=== PATIENT | male | born 1985 | race Caucasian/White ===

== ENCOUNTER 2019-05-27 20:01 | Emergency (ER) | payer BC ==
[2019-05-27 20:32] VITALS: PULSE 113
--- NOTE | 2019-05-27 20:35 | EDM.PDOC ---
ED HPI GENERAL MEDICAL PROBLEM - General Chief Complaint: Skin Complaint Stated Complaint: RASHES ALL OVER BODY Time Seen by Provider: 05/27/19 20:29 - History of Present Illness INITIAL COMMENTS - FREE TEXT/NARRATIVE: HISTORY AND PHYSICAL: History of present illness: Patient 33-year-old male with no significant past medical history presents with concern of multiple areas of excoriation has extremities that have developed some mild redness and is concerned about possible infection patient actually initially stated he thought this might be ringworm. He denies drug abuse he denies history of MRSA Review of systems: As per history of present illness and below otherwise all systems reviewed and negative. Past medical history: As per history of present illness and as reviewed below otherwise noncontributory. Surgical history: As per history of present illness and as reviewed below otherwise noncontributory. Social history: No reported history of drug or alcohol abuse. Family history: As per history of present illness and as reviewed below otherwise noncontributory. Physical exam: HEENT: Atraumatic, normocephalic, pupils reactive, negative for conjunctival pallor or scleral icterus, mucous membranes moist, throat clear, neck supple, nontender, trachea midline. Lungs: Clear to auscultation, breath sounds equal bilaterally, chest nontender. Heart: S1S2, regular, negative for clicks, rubs, or JVD. Abdomen: Soft, nondistended, nontender. Negative for masses or hepatosplenomegaly. Negative for costovertebral tenderness. Pelvis: Stable nontender. Genitourinary: Deferred. Rectal: Deferred. Extremities: Atraumatic, negative for cords or calf pain. Neurovascular unremarkable. Neuro: Awake, alert, oriented. Cranial nerves II through XII unremarkable. Cerebellum unremarkable. Motor and sensory unremarkable throughout. Exam nonfocal. Skin: Patient has multiple areas approximately 1-3 cm in diameter of his extremities with mild erythema. Diagnostics: None Therapeutics: None Impression: #1 cellulitis Definitive disposition and diagnosis as appropriate pending reevaluation and review of above. R knee Pain Score (Numeric/FACES): 7 - Related Data Allergies Allergy/AdvReac Type Severity Reaction Status Date / Time No Known Allergies Allergy Verified 05/27/19 20:32 Home Meds: Home Meds . [No Known Home Meds] 02/06/14 [History] Past Medical History Other Gastrointestinal History: Peptic Ulcers ED ROS GENERAL - Review of Systems Review Of Systems: ROS reveals no pertinent complaints other than HPI. ED EXAM, SKIN/RASH Exam: See Below (See dictation) Course - Vital Signs Last Recorded V/S: Last Vital Signs Temp 36.8 C 05/27/19 20:30 Pulse 113 H 05/27/19 20:30 Resp 16 05/27/19 20:30 BP 121/82 05/27/19 20:30 Pulse Ox 99 05/27/19 20:30 Departure - Departure Time of Disposition: 20:34 Disposition: Home, Self-Care 01 Condition: Good Clinical Impression: Cellulitis - Discharge Information Referrals: PCP,None [Primary Care Provider] - Additional Instructions: The following information is given to patients seen in the emergency department who are being discharged to home. This information is to outline your options for follow-up care. We provide all patients seen in our emergency department with a follow-up referral. The need for follow-up, as well as the timing and circumstances, are variable depending upon the specifics of your emergency department visit. If you don't have a primary care physician on staff, we will provide you with a referral. We always advise you to contact your personal physician following an emergency department visit to inform them of the circumstance of the visit and for follow-up with them and/or the need for any referrals to a consulting specialist. The emergency department will also refer you to a specialist when appropriate. This referral assures that you have the opportunity for followup care with a specialist. All of these measure are taken in an effort to provide you with optimal care, which includes your followup. Under all circumstances we always encourage you to contact your private physician who remains a resource for coordinating your care. When calling for followup care, please make the office aware that this follow-up is from your recent emergency room visit. If for any reason you are refused follow-up, please contact the [facility] emergency department at and asked to speak to the emergency department charge nurse. [facility] [address] [place] [id number] Bactrim as prescribed follow-up primary care both called to schedule appointment return as needed as discussed
[2019-05-27 20:55] VITALS: BP 132/62
== END 2019-05-27 20:55 | disposition home or self-care (01) ==
LOC: MW.ED 20:01
DX: L03.116 Cellulitis of left lower limb (principal); L03.115 Cellulitis of right lower limb
CPT/HCPCS: 99282; 99283

== ENCOUNTER 2020-05-09 15:46 | Emergency (ER) | payer SELFPAY ==
[2020-05-09 16:01] VITALS: BP 125/74; PULSE 96
[2020-05-09] MEDS ORDERED: Azithromycin 250 MG Tab PO STA (16:28)
[2020-05-09] MEDS ORDERED: cefTRIAXone 250 MG in Lidocaine 1% 1 ML IM ONE (16:28)
--- NOTE | 2020-05-09 16:32 | EDM.PDOC ---
ED HPI GENERAL MEDICAL PROBLEM - General Chief Complaint: Genitourinary Problem Stated Complaint: STI Time Seen by Provider: 05/09/20 15:48 Source of Information: Reports: Patient History Limitations: Reports: No Limitations - History of Present Illness INITIAL COMMENTS - FREE TEXT/NARRATIVE: HISTORY AND PHYSICAL: History of present illness: Patient is a 34-year-old male who presents to the ED today with concern of possible STD infection. Patient states that approximately 1 week ago he did have an unprotected sexual encounter with a partner who may have had gonorrhea or chlamydia. Patient states he noticed 1 to 2 days ago he started having some penile discharge but denies any pain or abdominal pain. Patient denies any associated symptoms or any other symptoms or concerns. Patient denies fever, chills, chest pain, shortness of breath, or cough. Denies headache, neck stiff ness, change in vision, syncope, or near syncope. Denies nausea, vomiting, abdominal pain, diarrhea, constipation, or dysuria. Has not noted any blood in urine or stool. Patient has been eating and drinking appropriately. Review of systems: As per history of present illness and below otherwise all systems reviewed and negative. Past medical history: As per history of present illness and as reviewed below otherwise noncontributory. Surgical history: As per history of present illness and as reviewed below otherwise noncontributory. Social history: See social history for further information Family history: As per history of present illness and as reviewed below otherwise nonco ntributory. Physical exam: General: Patient is alert, oriented, and in no acute distress. Patient sitting comfortably on exam table. HEENT: Atraumatic, normocephalic, pupils equal and reactive bilaterally, negative for conjunctival pallor or scleral icterus, mucous membranes moist, TMs normal bilaterally, throat clear, neck supple, nontender, trachea midline. No drooling or trismus noted. No meningeal signs. No hot potato voice noted. Lungs: Clear to auscultation, breath sounds equal bilaterally, chest nontender. Heart: S1S2, regular rate and rhythm without overt murmur Abdomen: Soft, nondistended, nontender. Negative for masses or hepatosplenomegaly. Negative for costovertebral tenderness. Pelvis: Stable nontender. Genitourinary: Deferred. Rectal: Deferred. Skin: Intact, warm, dry. No lesions or rashes noted. Extremities: Atraumatic, negative for cords or calf pain. Neurovascular unremarkable. Neuro: Awake, alert, oriented. Cranial nerves II through XII unremarkable. Cerebellum unremarkable. Motor and sensory unremarkable throughout. Exam nonfocal. Notes: Sudden symptoms that would prompt return to the ED thoroughly discussed with patient. Discussed importance for follow-up with a primary care provider. Discussed with patient that if he desires full STD screening he can get this done with his primary care provider or at the [facility]. Voices understanding and is agreeable to plan of care. Denies any further questions or concerns at this time. Diagnostics: UA, Gonorrhea and chlamydia Therapeutics: Rocephin 250mg IM, Azithromycin 1g PO Prescription: Ciprofloxacin Impression: Urinary tract infection High risk sexual encounter Plan: 1. If you desire full STD screening, you can get this done with your primary care provider or at the [facility]. The number has been provided above for you to call and establish an appointment time. 2. Follow up with a primary care provider as discussed. Return to the ED as nee ded and as discussed. 3. Refrain from sexual intercourse until the lab work has returned. If you are positive for gonorrhea or chlamydia, refrain from sexual intercourse until you have had a test of cure. Definitive disposition and diagnosis as appropriate pending reevaluation and review of above. Penis Pain Score (Numeric/FACES): 5 - Related Data Allergies Allergy/AdvReac Type Severity Reaction Status Date / Time No Known Allergies Allergy Verified 05/09/20 15:57 Home Meds: Home Meds Ciprofloxacin [Ciprofloxacin HCl] 500 mg PO BID 5 Days #10 tab 05/09/20 [Rx] Past Medical History - Past Health History Medical/Surgical History: Denies Medical/Surgical History Other Gastrointestinal History: Peptic Ulcers - Infectious Disease History Infectious Disease History: Reports: None Social & Family History - Family History Family Medical History: Noncontributory - Tobacco Use Smoking Status *Q: Current Every Day Smoker Years of Tobacco use: 13 Packs/Tins Daily: 1 - Caffeine Use Caffeine Use: Reports: Coffee, Energy Drinks, Soda, Tea - Recreational Drug Use Recreational Drug Use: No ED ROS GENERAL - Review of Systems Review Of Systems: Comprehensive ROS is negative, except as noted in HPI. ED EXAM, GENERAL - Physical Exam Exam: See Below (see dictation) Course - Vital Signs Last Recorded V/S: Last Vital Signs Temp 96.0 F L 05/09/20 15:58 Pulse 96 05/09/20 15:58 Resp 18 05/09/20 15:58 BP 125/74 05/09/20 15:58 Pulse Ox 98 05/09/20 15:58 - Orders/Labs/Meds Orders: Active Orders 24 hr Category Date Time Status CHLAMYDIA AND GONORRHEA BY TMA Stat Lab 05/09/20 15:56 Received CULTURE URINE [RM] Stat Lab 05/09/20 15:56 Received Labs: Laboratory Tests 05/09/20 Range/Units 15:56 Urine Color YELLOW Urine Appearance SLT CLOUDY Urine pH 6.0 (5.0-8.0) Ur Specific [place] 1.025 (1.001-1.035) Urine Protein NEGATIVE (NEGATIVE) mg/dL Urine Glucose (UA) NEGATIVE (NEGATIVE) mg/dL Urine Ketones NEGATIVE (NEGATIVE) mg/dL Urine Occult Blood TRACE-INTACT H (NEGATIVE) Urine Nitrite NEGATIVE (NEGATIVE) Urine Bilirubin NEGATIVE (NEGATIVE) Urine Urobilinogen 0.2 (<2.0) EU/dL Ur Leukocyte Esterase MODERATE H (NEGATIVE) Urine RBC 1-3 (0-2/HPF) Urine WBC 20-30 (0-5/HPF) Ur Epithelial Cells RARE (NONE-FEW) Urine Bacteria FEW (NEGATIVE) Meds: Medications Discontinued Medications Generic Name Dose Route Start Last Admin Trade Name Buddyq PRN Reason Stop Dose Admin Azithromycin 1,000 mg 05/09/20 16:28 Zithromax PO 05/09/20 16:29 NOW STA Ceftriaxone Sodium 250 mg/ 1 mls @ 1 mls/sec 05/09/20 16:28 Lidocaine HCl IM 05/09/20 16:29 ONETIME ONE Departure - Departure Time of Disposition: 16:37 Disposition: Home, Self-Care 01 Clinical Impression: Urinary tract infection Qualifiers: Urinary tract infection type: acute cystitis Hematuria presence: without hematuria Qualified Code(s): N30.00 - Acute cystitis without hematuria High risk sexual behavior Qualifiers: High risk sexual behavior type: unspecified Qualified Code(s): Z72.51 - High risk heterosexual behavior - Discharge Information Prescriptions: Ciprofloxacin [Ciprofloxacin HCl] 500 mg PO BID 5 Days #10 tab Referrals: PCP,None [Primary Care Provider] - Forms: ED Department Discharge Additional Instructions: The following information is given to patients seen in the emergency department who are being discharged to home. This information is to outline your options for follow-up care. We provide all patients seen in our emergency department with a follow-up referral. The need for follow-up, as well as the timing and circumstances, are variable depending upon the specifics of your emergency department visit. If you don't have a primary care physician on staff, we will provide you with a referral. We always advise you to contact your personal physician following an emergency department visit to inform them of the circumstance of the visit and for follow-up with them and/or the need for any referrals to a consulting specialist. The emergency department will also refer you to a specialist when appropriate. This referral assures that you have the opportunity for follow-up care with a specialist. All of these measure are taken in an effort to provide you with optimal care, which includes your follow-up. Under all circumstances we always encourage you to contact your private physician who remains a resource for coordinating your care. When calling for follow-up care, please make the office aware that this follow-up is from your recent emergency room visit. If for any reason you are refused follow-up, please contact the [facility] Emergency Department at and asked to speak to the emergency department charge nurse. [facility] Primary Care [address] [place] [address] [id number] [address] [address] [facility] [address] [place] [address] 1. If you desire full STD screening, you can get this done with your primary care provider or at the [facility]. The number has been provided above for you to call and establish an appointment time. 2. Follow up with a primary care provider as discussed. Return to the ED as needed and as discussed. 3. Refrain from sexual intercourse until the lab work has returned. If you are positive for gonorrhea or chlamydia, refrain from sexual intercourse until you have had a test of cure. Take medication as prescribed. Sepsis Event Note (ED) - Evaluation Sepsis Screening Result: No Definite Risk - Focused Exam Vital Signs: Vital Signs Temp Pulse Resp BP Pulse Ox 05/09/20 15:58 96.0 F L 96 18 125/74 98 - My Orders Last 24 Hours: My Active Orders 05/09/20 15:56 CHLAMYDIA AND GONORRHEA BY TMA Stat CULTURE URINE [RM] Stat - Assessment/Plan Last 24 Hours: My Active Orders 05/09/20 15:56 CHLAMYDIA AND GONORRHEA BY TMA Stat CULTURE URINE [RM] Stat
[2020-05-12 11:07] LABS: C.TRACHOMATIS BY TMA Negative (Negative); N.GONORRHOEAE BY TMA Positive (Negative)
== END 2020-05-09 16:45 | disposition home or self-care (01) ==
LOC: MW.ED 15:46
DX: N30.00 Acute cystitis without hematuria (principal); Z72.51 High risk heterosexual behavior; F17.210 Nicotine dependence, cigarettes, uncomplicated
CPT/HCPCS: 81001; 87086; 87491; 87591; 96372; 99283; A9270; J0696; J2001; 99282

== ENCOUNTER 2020-07-04 14:32 | Emergency (ER) | payer MEDICAID ==
--- NOTE | 2020-07-04 14:43 | EDM.PDOC ---
ED HPI GENERAL MEDICAL PROBLEM - General Chief Complaint: Lower Extremity Injury/Pain Stated Complaint: right ankle swollen Time Seen by Provider: 07/04/20 14:32 Source of Information: Reports: Patient History Limitations: Reports: No Limitations - History of Present Illness INITIAL COMMENTS - FREE TEXT/NARRATIVE: HISTORY AND PHYSICAL: History of present illness: Is a 34-year-old male who presents to the ED today with concern of right ankle injury that occurred last night when he was playing Frisbee. Patient states he was running after the Frisbee when he stepped on the ground that was a little bit uneven. Patient states he twisted his right ankle and felt a popping sensation. Patient states that he has been able to put weight on it since but does have pain with doing so. Patient states he iced and elevated his legs throughout the night but continued to have pain on his ankle this morning. Patient denies completely falling or hitting his head or losing consciousness. Patient denies any other associated injuries or symptoms or concerns. Patient denies fever, chills, chest pain, shortness of breath, or cough. Denies headache, neck stiff ness, change in vision, syncope, or near syncope. Denies nausea, vomiting, abdominal pain, diarrhea, constipation, or dysuria. Has not noted any blood in urine or stool. Patient has been eating and drinking appropriately. Review of systems: As per history of present illness and below otherwise all systems reviewed and negative. Past medical history: As per history of present illness and as reviewed below otherwise noncontributory. Surgical history: As per history of present illness and as reviewed below otherwise noncontributory. Social history: See social history for further information Family history: As per history of present illness and as reviewed below otherwise noncontributory. Physical exam: General: Patient is alert, oriented, and in no acute distress. Patient sitting comfortably on exam table. Vital stable and reviewed by me. HEENT: Atraumatic, normocephalic, pupils equal and reactive bilaterally, negative for conjunctival pallor or scleral icterus, mucous membranes moist, TMs normal bilaterally, throat clear, neck supple, nontender, trachea midline. No drooling or trismus noted. No meningeal signs. No hot potato voice noted. Lungs: Clear to auscultation, breath sounds equal bilaterally, chest nontender. Heart: S1S2, regular rate and rhythm without overt murmur Abdomen: Soft, nondistended, nontender. Negative for masses or hepatosplenomegaly. Negative for costovertebral tenderness. Pelvis: Stable nontender. Genitourinary: Deferred. Rectal: Deferred. Skin: Intact, warm, dry. No lesions or rashes noted. Extremities: Patient does have mild to moderate edema of the lateral malleolus of the right ankle. Patient does have tenderness to palpation of this area. Patient does have limited range of motion of the right ankle due to pain but does have full range of motion of the right knee and digits on the right foot. Intact sensation to light and deep touch of the entire right lower extremity. Dorsalis pedis and posterior tibial pulses are grossly intact of the right lower extremity with capillary refill less than 2 seconds. Otherwise, atraumatic, negative for cords or calf pain. Neurovascular unremarkable. Neuro: Awake, alert, oriented. Cranial nerves II through XII unremarkable. Cerebellum unremarkable. Motor and sensory unremarkable throughout. Exam nonfocal. Notes: Signs and symptoms that would prompt return to the ED thoroughly discussed with patient. Discussed importance for follow-up with a primary care provider or orthopedic provider. Voices understanding and is agreeable to plan of care. Denies any further questions or concerns at this time. Diagnostics: None ankle x-ray, right Therapeutics: Walking boot and crutches. ankle injury r/o fracture, for joint stabilization. To be used until orthopedic evaluation Prescription: None Impression: Right ankle injury Plan: 1. Rest, ice, elevate the affected extremity. You can apply ice 15 minutes on, 15 minutes off. 2. Tylenol and/or Ibuprofen as directed for pain management or discomfort. 3. Follow up with the Orthopedic provider/primary care provider as discussed. Return to the ED as needed and as discussed. Definitive disposition and diagnosis as appropriate pending reevaluation and review of above. right ankle Pain Score (Numeric/FACES): 7 - Related Data Allergies Allergy/AdvReac Type Severity Reaction Status Date / Time No Known Allergies Allergy Verified 07/04/20 15:02 Home Meds: Home Meds . [No Known Home Meds] 07/04/20 [History] Past Medical History - Past Health History Medical/Surgical History: Denies Medical/Surgical History Other Gastrointestinal History: Peptic Ulcers - Infectious Disease History Infectious Disease History: Reports: None Social & Family History - Family History Family Medical History: No Pertinent Family History - Caffeine Use Caffeine Use: Reports: Coffee, Energy Drinks, Soda, Tea Review of Systems - Review of Systems Review Of Systems: Comprehensive ROS is negative, except as noted in HPI. ED EXAM, GENERAL - Physical Exam Exam: See Below (see dictation) Course - Vital Signs Last Recorded V/S: Last Vital Signs Temp 97.4 F 07/04/20 14:40 Pulse 96 07/04/20 14:40 Resp 16 07/04/20 14:40 BP 135/70 07/04/20 14:40 Pulse Ox 98 07/04/20 14:40 - Orders/Labs/Meds Orders: Active Orders 24 hr Category Date Time Status DME for Discharge [COMM] Stat Oth 07/04/20 15:35 Ordered Departure - Departure Time of Disposition: 15:36 Disposition: Home, Self-Care 01 Clinical Impression: Right ankle injury Qualifiers: Encounter type: initial encounter Qualified Code(s): S99.911A - Unspecified injury of right ankle, initial encounter - Discharge Information Referrals: PCP,None [Primary Care Provider] - Forms: ED Department Discharge Additional Instructions: The following information is given to patients seen in the emergency department who are being discharged to home. This information is to outline your options for follow-up care. We provide all patients seen in our emergency department with a follow-up referral. The need for follow-up, as well as the timing and circumstances, are variable depending upon the specifics of your emergency department visit. If you don't have a primary care physician on staff, we will provide you with a referral. We always advise you to contact your personal physician following an emergency department visit to inform them of the circumstance of the visit and for follow-up with them and/or the need for any referrals to a consulting specialist. The emergency department will also refer you to a specialist when appropriate. This referral assures that you have the opportunity for follow-up care with a specialist. All of these measure are taken in an effort to provide you with optimal care, which includes your follow-up. Under all circumstances we always encourage you to contact your private physician who remains a resource for coordinating your care. When calling for follow-up care, please make the office aware that this follow-up is from your recent emergency room visit. If for any reason you are refused follow-up, please contact the [facility] Emergency Department at and asked to speak to the emergency department charge nurse. [facility] Primary [facility] [address] [place] [address] [facility] [address] [place] [id number] [facility] Specialty [facility] - [facility] Professional Building [address] [facility], [address] [place] [address] Dr Narayan, Orthopedist [facility] [address] [place] [address] Dr Carson - Dr Workman - Dr Small [facility] at [facility] [address] [place] [address] [facility] [address] [place] [address] 1. Rest, ice, elevate the affected extremity. You can apply ice 15 minutes on, 15 minutes off. 2. Tylenol and/or Ibuprofen as directed for pain management or discomfort. 3. Follow up with the Orthopedic provider/primary care provider as discussed. Return to the ED as needed and as discussed. Sepsis Event Note (ED) - Focused Exam Vital Signs: Vital Signs Temp Pulse Resp BP Pulse Ox 07/04/20 14:40 97.4 F 96 16 135/70 98 - My Orders Last 24 Hours: My Active Orders 07/04/20 15:35 DME for Discharge [COMM] Stat - Assessment/Plan Last 24 Hours: My Active Orders 07/04/20 15:35 DME for Discharge [COMM] Stat
--- NOTE | 2020-07-04 15:13 | CR ---
INDICATION: Right foot and ankle pain TECHNIQUE: Ankle radiograph 3 views right COMPARISON: None FINDINGS: Bone: No acute fractures or aggressive bone lesions are identified. Joint: The ankle mortise joint and the visualized hindfoot joints are unremarkable in appearance. No significant ankle effusion is seen. Soft tissue: Mild lateral swelling seen. The Kager fat pad and the Achilles` tendon is normal in appearance. No radiopaque foreign bodies are seen. IMPRESSION: 1. No acute osseous injuries or abnormalities are noted. Dictated by: Pool Payne MD @ 07/04/2020 15:11:42 (Electronically Signed)
--- NOTE | 2020-07-04 15:15 | CR ---
INDICATION: Right foot and ankle pain TECHNIQUE: Foot radiograph 2 views right COMPARISON: None FINDINGS: Bone: No acute fractures or aggressive bone lesions are identified. Joint: The visualized hindfoot, midfoot, and forefoot joints are unremarkable in appearance. No significant ankle effusion is seen. Soft tissue: Unremarkable. No radiopaque foreign bodies are seen. IMPRESSION: 1. No acute osseous injuries or abnormalities are noted. Dictated by: Pool Payne MD @ 07/04/2020 15:13:15 (Electronically Signed)
[2020-07-04 17:26] VITALS: BP 127/77; PULSE 75
== END 2020-07-04 16:32 | disposition home or self-care (01) ==
LOC: MW.ED 14:32
DX: S99.911A Unspecified injury of right ankle, initial encounter (principal); X50.1XXA Overexertion from prolonged static or awkward postures, initial encounter; Y93.74 Activity, frisbee
CPT/HCPCS: 73610-26-RT; 73610-RT; 73620-26-RT; 73620-RT; 99283

== ENCOUNTER 2020-09-26 10:55 | Emergency (ER) | payer MEDICAID, OTHER ==
[2020-09-26] MEDS ORDERED: Sodium Chloride 0.9% 2.5 ML Syringe FLUSH PRN (11:39)
[2020-09-26] MEDS ORDERED: Sodium Chloride 0.9% 10 ML Syringe FLUSH PRN (11:39)
[2020-09-26] MEDS ORDERED: MVI, Adult with Vitamin K 10 ML, Thiamine 100 MG, Folic Acid 1 MG in Sodium Chloride 0.... IV ONE ×4 (11:40)
[2020-09-26] MEDS ORDERED: Ketorolac 30 MG/ML SDV IVPUSH ONE (11:58)
[2020-09-26] MEDS ORDERED: Sodium Chloride 0.9% 1,000 ML IV ONE (11:58)
--- NOTE | 2020-09-26 12:10 | PCM.EKG ---
#1 Interpretation EKG Date: 09/26/20 Time: 12:10 EKG Interpretation Comments: Normal sinus rhythm with a rate of 94 normal axis and intervals no acute ischemia normal EKG
[2020-09-26 12:28] LABS: BLOOD UREA NITROGEN,BUN 15 mg/dL (7.0-18.0); CARBON DIOXIDE,CO2 23.4 mmol/L (21.0-32.0); CHLORIDE,CL 103 mmol/L (98-107); GLUCOSE RANDOM 119 mg/dL (74-106); LIPASE 111 U/L (73-393); POTASSIUM,K 3.9 mmol/L (3.5-5.1); SODIUM,NA 138 mmol/L (136-148)
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
[2020-09-26] MEDS ORDERED: Iopamidol 755 MG/ML 500 ML Multipack Bottle IVPUSH ONE (12:54)
--- NOTE | 2020-09-26 13:22 | CR ---
HISTORY: Left rib pain. No known injury. TECHNIQUE: Frontal view the chest. COMPARISON: Chest x-ray 04/20/2014. FINDINGS: No airspace consolidation. No pleural effusion or pneumothorax. Pulmonary vasculature and cardiomediastinal silhouette are within normal limits. Healed remote left rib fracture. IMPRESSION: No acute findings. Healed remote left rib fracture. Dictated by Frederick Castillo MD @ Sep 26 2020 1:19PM Signed by Dr. Frederick Castillo @ Sep 26 2020 1:20PM
--- NOTE | 2020-09-26 13:28 | CT ---
HISTORY: Right upper quadrant pain. TECHNIQUE: CT abdomen pelvis with IV contrast. 100 mL Isovue-370 IV. COMPARISON: None. FINDINGS: Abdomen: No liver lesions. No bile duct dilation. No pancreatic mass or pancreatic duct dilation. No spleen lesions. No adrenal nodules. Kidneys enhance symmetrically. No renal mass. No hydronephrosis. No dilated bowel. Appendix is unremarkable. No free fluid. No lymphadenopathy. Abdominal aorta is normal caliber. Pelvis: No lymphadenopathy. Musculoskeletal: Unremarkable. Lower chest: Minimal atelectasis in the lung bases. IMPRESSION: No acute abnormality in the abdomen or pelvis. Please note that all CT scans at this facility use dose modulation, iterative reconstruction, and/or weight-based dosing when appropriate to reduce radiation dose to as low as reasonably achievable. Dictated by Frederick Castillo MD @ Sep 26 2020 1:19PM Signed by Dr. Frederick Castillo @ Sep 26 2020 1:26PM
[2020-09-26 13:48] VITALS: BP 129/79; PULSE 89
== END 2020-09-26 13:46 | disposition home or self-care (01) ==
LOC: MW.ED 10:55
DX: R10.12 Left upper quadrant pain (principal); R07.81 Pleurodynia; R74.01 Elevation of levels of liver transaminase levels; F10.10 Alcohol abuse, uncomplicated; Z72.0 Tobacco use
CPT/HCPCS: 36415; 71045; 74177; 80053; 81003; 83690; 84484; 85025; 93005; 96365; 96375; 99284; J1885; J3411; J7030; Q9967; 93010; 99283

== ENCOUNTER 2020-10-16 09:16 | Emergency (ER) | payer MEDICAID ==
[2020-10-16] MEDS ORDERED: Albuterol/Ipratropium 3.0-0.5 MG/3 ML Neb Soln NEB ONE (09:34)
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
[2020-10-16 10:39] LABS: BLOOD UREA NITROGEN,BUN 12 mg/dL (7.0-18.0); CARBON DIOXIDE,CO2 22.6 mmol/L (21.0-32.0); CHLORIDE,CL 103 mmol/L (98-107); GLUCOSE RANDOM 115 mg/dL (74-106); LIPASE 72 U/L (73-393); POTASSIUM,K 3.7 mmol/L (3.5-5.1); SODIUM,NA 139 mmol/L (136-148)
--- NOTE | 2020-10-16 11:06 | CR ---
Indication: Cough and vomiting Comparison: Single view chest September 26, 2020 Technique: PA and Lateral views chest Findings: There is no focal consolidation, effusion, or pneumothorax. The cardiomediastinal silhouette is within normal limits. Old bilateral rib deformities are appreciated. Impression: No acute cardiopulmonary abnormality. Dictated by Larry Orta MD @ Oct 16 2020 11:03AM Signed by Dr. Larry Orta @ Oct 16 2020 11:04AM
[2020-10-16 11:40] VITALS: BP 128/54; PULSE 103
== END 2020-10-16 11:40 | disposition home or self-care (01) ==
LOC: MW.ED 09:16
DX: R05 Cough (principal); R07.81 Pleurodynia; R00.0 Tachycardia, unspecified; Z72.0 Tobacco use
CPT/HCPCS: 36415; 71046; 71046-26; 80053; 82550; 83605; 83690; 83735; 84100; 85025; 93005; 93010; 94640; 99283; 99284-25; J7620-GY

== ENCOUNTER 2020-10-22 03:04 | Emergency (ER) | payer MEDICAID ==
[2020-10-22] MEDS ORDERED: Ondansetron 4 MG Tab.DIS PO ONE (03:29)
[2020-10-22] MEDS ORDERED: Ketorolac 30 MG/ML SDV IM ONE (03:29)
[2020-10-22] MEDS ORDERED: HYDROmorphone 1 MG/ML Syringe IM ONE (03:29)
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
--- NOTE | 2020-10-22 03:57 | CR ---
INDICATION: Cough with left rib pain TECHNIQUE: Chest radiograph 2 views COMPARISON: None FINDINGS: Moderate degradation of image quality noted due to body habitus. Mediastinum: The mediastinum is normal in appearance. The heart silhouette is normal in size and morphology. Lung: Both lungs are unremarkable in appearance. No sign of pleural effusion seen. No pneumothorax is identified. Bone and Soft tissue: Remote healed bilateral rib fractures are noted. No definite acute rib injuries seen but if this is a high clinical index of suspicion, dedicated rib radiographs are recommended. IMPRESSIONS: 1. No acute cardiopulmonary disease is seen. 2. No definite acute rib injuries seen but if this is a high clinical index of suspicion, dedicated rib radiographs are recommended. Dictated by Pool Payne MD @ 10/22/2020 3:56:08 AM Dictated by: Pool Payne MD @ 10/22/2020 03:56:11 (Electronically Signed)
[2020-10-22] MEDS ORDERED: guaiFENesin/Dextromethorphan 100-10 MG/5 ML Soln 10 ML Cup PO STA (04:03)
[2020-10-22 04:22] VITALS: BP 138/71; PULSE 94
== END 2020-10-22 04:22 | disposition home or self-care (01) ==
LOC: MW.ED 03:04
DX: R07.81 Pleurodynia (principal); R05 Cough
CPT/HCPCS: 71046; 96372; 99283; A9270; J1170; J1885

== ENCOUNTER 2020-10-25 16:14 | Emergency (ER) | payer MEDICAID ==
[2020-10-25] MEDS ORDERED: Acetaminophen/HYDROcodone 325-10 MG Tab PO ONE (16:51)
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
--- NOTE | 2020-10-25 17:42 | CR ---
INDICATION: Chronic cough. COMPARISON: : 22 October 2020 TECHNIQUE: Two view chest. FINDINGS: The lungs are clear. The heart, mediastinum and pulmonary vessels are of normal size. There is no evidence of pleural disease. Healed right lateral 6th and 7th rib fractures. Healed left 7th rib fracture. No acute rib findings. No pneumothorax or effusion. IMPRESSION: Negative chest. Dictated by Ji Lockwood MD @ Oct 25 2020 5:39PM Signed by Dr. Ji Lockwood @ Oct 25 2020 5:41PM
[2020-10-25] MEDS ORDERED: predniSONE 10 MG Tab PO STA (18:01)
[2020-10-25] MEDS ORDERED: HYDROmorphone 1 MG/ML Syringe IM ONE (18:01)
[2020-10-25 18:23] VITALS: BP 157/83; PULSE 95
== END 2020-10-25 19:21 | disposition home or self-care (01) ==
LOC: MW.ED 16:14
DX: M54.6 Pain in thoracic spine (principal); M54.5 Low back pain; R07.81 Pleurodynia; R05 Cough; R06.02 Shortness of breath; Z72.0 Tobacco use
CPT/HCPCS: 71046; 96372; 99283; A9270; J1170

== ENCOUNTER 2020-11-22 13:34 | Emergency (ER) | payer MEDICAID ==
[2020-11-22 13:51] VITALS: BP 135/88; PULSE 116
[2020-11-22] MEDS ORDERED: Acetaminophen/oxyCODONE 325-5 MG Tab PO ONE (14:10)
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
--- NOTE | 2020-11-22 14:57 | CR ---
Indication: Left-sided upper rib pain Technique: PA chest and oblique views of the left ribs Comparison: Chest x-ray 10/30/2020 Findings: Normal cardiac mediastinal silhouette basilar atelectasis. No effusion or pneumothorax. Bilateral old posterior rib fractures. Probable acute posterior left 7th rib fracture. As well as the 8th posterior rib. Dictated by Kim Guerin MD @ 11/22/2020 2:57:[address] Kim Guerin @ Nov 22 2020 2:57PM
== END 2020-11-22 15:57 | disposition home or self-care (01) ==
LOC: MW.ED 13:34
DX: S22.42XA Multiple fractures of ribs, left side, initial encounter for closed fracture (principal); X50.0XXA Overexertion from strenuous movement or load, initial encounter
CPT/HCPCS: 71101; 99283; A9270; 93010

== ENCOUNTER 2021-06-08 16:46 | Observation (INO) | payer MEDICAID ==
[2021-06-08] MEDS ORDERED: Tetracaine HCl/PF 0.5% 4 ML Bottle EYEBOTH ONE (17:24)
--- NOTE | 2021-06-08 18:46 | PCM.EKG ---
#1 Interpretation Time: 18:45 EKG Interpretation Comments: 105, sinus tachycardia, nonspecific ST/T findings.
[2021-06-08 18:51] LABS: BLOOD UREA NITROGEN,BUN 7 mg/dL (7.0-18.0); CARBON DIOXIDE,CO2 22.7 mmol/L (21.0-32.0); CHLORIDE,CL 103 mmol/L (98-107); GLUCOSE RANDOM 163 mg/dL (74-106); POTASSIUM,K 3.6 mmol/L (3.5-5.1); SODIUM,NA 140 mmol/L (136-148)
[2021-06-08] MEDS ORDERED: Iopamidol 755 MG/ML 500 ML Multipack Bottle IVPUSH STA (19:16)
--- NOTE | 2021-06-08 19:41 | CT ---
DATE: 06/08/2021 CLINICAL HISTORY: Patient with left-sided visual loss and vertigo. TECHNIQUE: Standard helical CT image acquisition through the intracranial circulation following intravenous administration of contrast material with bolus tracking. Multiplanar reconstructed images were performed and interpreted. COMPARISON: None. FINDINGS: There is no cerebral aneurysm or large vessel occlusion. The right internal carotid artery is normal. The right middle cerebral artery and its branches are normal. The right anterior cerebral artery and its branches are normal. The left internal carotid artery is normal. The left middle cerebral artery and its branches are normal. The left anterior cerebral artery and its branches are normal. The anterior communicating artery is well visualized and appears normal. The right vertebral artery and PICA are normal. The left vertebral artery and PICA are normal. The left vertebral artery is dominant. The basilar artery is patent and appears normal. The right posterior cerebral artery is normal. The left posterior cerebral artery is normal. The visualized venous structures are patent. IMPRESSION: Normal CT angiogram of the head without intracranial aneurysm or other neurovascular abnormality. Please note that all CT scans at this facility use dose modulation, iterative reconstruction, and/or weight-based dosing when appropriate to reduce radiation dose to as low as reasonably achievable. Dictated by Twyla Singleton MD @ 06/08/2021 11:36:18 PM (Electronically Signed)
--- NOTE | 2021-06-08 19:47 | CT ---
DATE: 06/08/2021 CLINICAL HISTORY: Patient with left-sided visual loss and vertigo. TECHNIQUE: Standard helical CT image acquisition of the neck up to the skull base after bolus intravenous contrast enhancement. Multiplanar reconstructed images performed on a separate workstation. COMPARISON: None. FINDINGS: The origins of the great vessels from the aortic arch are patent. The origin of the right vertebral artery is patent. The origin of the left vertebral artery is patent. The common carotid arteries are patent. There is no stenosis at the origin of the right internal carotid artery. There is no stenosis at the origin of the left internal carotid artery. The rest of the cervical segments of the internal carotid arteries are patent up to the skull base. The left vertebral artery is dominant. The cervical segments of the vertebral arteries are patent up to the skull base. The visualized intracranial vasculature is unremarkable. The visualized lung apices are unremarkable. The thyroid gland is unremarkable. The soft tissues of the neck are unremarkable. There are degenerative changes in the cervical spine. IMPRESSION: Normal CT angiogram of the neck. Please note that all CT scans at this facility use dose modulation, iterative reconstruction, and/or weight-based dosing when appropriate to reduce radiation dose to as low as reasonably achievable. Dictated by Twyla Singleton MD @ 06/08/2021 11:37:55 PM (Electronically Signed)
[2021-06-08] MEDS ORDERED: Sodium Chloride 0.9% 1,000 ML IV ONE (19:57)
[2021-06-08] MEDS ORDERED: Meclizine 25 MG Tab PO ONE (19:57)
[2021-06-08] MEDS ORDERED: Ondansetron 4 MG/2 ML SDV IVPUSH ONE (19:57)
[2021-06-08] MEDS ORDERED: LORazepam 2 MG/ML SDV IVPUSH ONE (21:33)
[2021-06-09] MEDS ORDERED: Acetaminophen 325 MG Tab PO PRN (02:14)
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
--- NOTE | 2021-06-09 07:29 | CT ---
Indication: Vertigo Technique: Volumetric multidetector CT images of the head were obtained without the administration of low osmolar intravenous contrast. Comparison: Angiography head June 08, 2021 Findings: There is no intra-axial or extra-axial fluid collection. There is no mass effect or midline shift. The ventricles and sulci are normal in size and position for age. The brain parenchyma is grossly preserved in attenuation and pompa-white differentiation. The orbits and their contents are grossly within normal limits. The bony calvarium is grossly intact. The paranasal sinuses are clear. The mastoid air cells are well aerated. Impression: No acute intracranial abnormality. Please note that all CT scans at this facility use dose modulation, iterative reconstruction, and/or weight-based dosing when appropriate to reduce radiation dose to as low as reasonably achievable. Dictated by Larry Orta MD @ 06/09/2021 7:28:33 AM (Electronically Signed)
[2021-06-09] MEDS ORDERED: Gadobenate Dimeglumine 529 MG/ML 20 ML SDV IVPUSH STA (07:37)
--- NOTE | 2021-06-09 08:47 | MR ---
Indication: Vertigo Technique: Multiplanar, multisequence MR images of the brain were obtained before and after the administration of intravenous gadolinium. 20 cc MultiHance Comparison: CT angiography June 08, 2021 Findings: On midline sagittal T1 images there are preserved flow voids and sagittal sinuses. The corpus callosum is preserved in signal and contour. The pituitary gland is unremarkable without evidence of remodeling of the sella turcica. There is no significant cerebellar tonsillar ectopia. On diffusion-weighted sequences, there is no evidence of acute or subacute infarct. On blood sensitive sequences, there is no evidence of or chronic hemorrhage. There is mild nonspecific periventricular T2/FLAIR hyperintensity which may represent sequela of chronic small vessel disease change and/or migraines. The remaining brain parenchyma is otherwise preserved in signal intensity. There is incidental note made of subtle T2/FLAIR hyperintense signal adjacent to the distal aspect of the right vertebral artery on series 501, image 1 through 3 There is no evidence of abnormal contrast enhancement. The flow voids of the skull base are otherwise grossly preserved. The orbits and their contents are within normal limits. There is minimal mucosal thickening in the paranasal sinuses. The mastoid air cells are clear. Impression: No evidence of restricted diffusion or obvious acute intracranial abnormality. There is questionable demonstration of eccentric T2/FLAIR hyperintense signal adjacent to the right V3 segment of the visualized distal right vertebral artery. This could represent mild venous prominence and normal-variant hypoplasia. If there is concern for subtle vertebral artery dissection, consider follow-up with MR angiography of the cervical vasculature with a fat-suppressed T1 sequence for evaluation T1 hyperintense intramural hemorrhage. Dictated by Larry Orta MD @ 06/09/2021 8:46:14 AM (Electronically Signed)
[2021-06-09] MEDS ORDERED: Gabapentin 300 MG Cap PO PRN (11:21)
[2021-06-09] MEDS ORDERED: Ondansetron 4 MG/2 ML SDV IVPUSH PRN (11:21)
[2021-06-09] MEDS: Pantoprazole 40 MG Tab.CR PO SCH (12:15)
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
--- NOTE | 2021-06-09 13:24 | MR ---
INDICATION: Possible vertebral artery dissection. TECHNIQUE: [id number] MRA images acquired through the head. COMPARISON: CTA head 06/08/2021. FINDINGS: The visualized internal carotid, middle cerebral, and anterior cerebral arteries are widely patent. The visualized vertebral, basilar, and posterior cerebral arteries are widely patent. No intracranial aneurysm. IMPRESSION: Unremarkable MRA of the head. Dictated by Alf Bingham MD @ 06/09/2021 1:22:22 PM (Electronically Signed)
--- NOTE | 2021-06-09 14:08 | MR ---
INDICATION: Possible vertebral artery dissection. TECHNIQUE: [id number] MRA images acquired through the neck. COMPARISON: CTA neck 06/08/2021. FINDINGS: The common carotid arteries are widely patent. The internal carotid arteries are widely patent. The left vertebral artery is dominant. The vertebral arteries are widely patent. No findings to suggest arterial dissection. IMPRESSION: 1. Wide patency of the cervical arteries. 2. No findings to suggest arterial dissection. Dictated by Alf Bingham MD @ 06/09/2021 2:07:04 PM (Electronically Signed)
[2021-06-10 06:48] LABS: CARBON DIOXIDE,CO2 30.1 mmol/L (21.0-32.0); POTASSIUM,K 4.4 mmol/L (3.5-5.1)
[2021-06-10] MEDS: Pantoprazole 40 MG Tab.CR PO SCH (09:40)
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
--- NOTE | 2021-06-10 11:07 | PCM.DCSUM1 ---
Discharge Summary - Hospital Course Free Text/Narrative:: The patient is a 35-year-old male, on day 2 of service, who has a significant past medical history of migraines, ADHD, bipolar disorder, back pain, and carpal tunnel syndrome, who was admitted to the medical floor due to vertigo and complaints of left eye visual loss. During his hospital course the patient had multiple imaging modalities done including a CTA of the head and neck which was within normal limits, brain MRI which depicted a possible vertebral dissection, and an MRA of the head and neck which was unremarkable. Multiple doctors were also consulted in regards to this patient including neurologist Dr. Johnson and neuroradiologist Dr. Orta. Due to the negative imaging modalities, both of these physicians felt the patient's symptoms were secondary to his history of migraines and possibly an acute viral infection, and that anticoagulation is not needed at this time. Upon interview with the patient today he feels his dizziness and vertigo has completely resolved, and he is symptom-free and feels well. For his ongoing visual symptoms which have plagued him since he was 10 years old, he will follow up with cement or concrete finishing supervisor Dr. Staley on an outpatient basis. The patient has been advised to return to the hospital if he experiences worsening headache, dizziness, nausea, vomiting, slurred speech, or weakness. He is also been counseled to be compliant with his medications and to take them at scheduled times. The patient has also been educated on following up with his PCP Dr. Noonan in 1 to 2 weeks time. The patient is now stable and can be discharged. - Discharge Data Discharge Date: 06/10/21 Discharge Disposition: Home, Self-Care 01 Condition: Stable - Referral to Home Health Primary Care Physician: PCP None - Discharge Diagnosis/Problem(s) (1) Vertigo SNOMED Code(s): 979527382 ICD Code: R42 - DIZZINESS AND GIDDINESS Status: Acute Current Visit: Yes (2) Migraine SNOMED Code(s): 12737828 ICD Code: G43.909 - MIGRAINE, UNSP, NOT INTRACTABLE, WITHOUT STATUS MIGRAINOSUS Status: Acute Current Visit: Yes (3) Vomiting SNOMED Code(s): 383454899 ICD Code: R11.10 - VOMITING, UNSPECIFIED Status: Acute Current Visit: Yes (4) Carpal tunnel syndrome SNOMED Code(s): 97993564 ICD Code: G56.00 - CARPAL TUNNEL SYNDROME, UNSPECIFIED UPPER LIMB Status: Acute Current Visit: Yes (5) Headache SNOMED Code(s): 49935493 ICD Code: R51.9 - HEADACHE, UNSPECIFIED Status: Acute Current Visit: Yes (6) Back pain SNOMED Code(s): 769927183 ICD Code: M54.9 - DORSALGIA, UNSPECIFIED Status: Acute Current Visit: No (7) Visual problems SNOMED Code(s): 59050431 ICD Code: H54.7 - UNSPECIFIED VISUAL LOSS Status: Acute Current Visit: Yes - Patient Summary/Data Consults: Consultations 06/09/21 09:36 Consult to Physician [CONS] Routine - Patient Instructions Diet: Regular Diet as Tolerated Activity: As Tolerated Showering/Bathing: May Shower Other/Special Instructions: -If you have worsening dizziness, headache, nausea, vomiting, slurred speech, or weakness, return to the hospital. -Be compliant with your medications and take them at scheduled times. -Follow-up with cement or concrete finishing supervisor Dr. Staley. -Follow-up with PCP Dr. Noonan - Discharge Plan Home Medications: Home Meds Gabapentin [Neurontin] 300 mg PO BID PRN 06/09/21 [History] Patient Handouts: Vertigo, [id number] Referrals: Ta Staley MD [Ordering Only Provider] - - Discharge Summary/Plan Comment DC Time >30 min.: Yes Total # of Minutes for Discharge Time: 35 minutes - Review of Systems General: Denies: Fever, Fatigue HEENT: Denies: Headaches Pulmonary: Denies: Shortness of Breath, Cough Cardiovascular: Denies: Chest Pain, Palpitations Gastrointestinal: Denies: Abdominal Pain Genitourinary: Denies: Dysuria Neurological: Denies: Dizziness, Numbness, Seizure - Patient Data Vitals - Most Recent: Last Vital Signs Temp 96.1 F L 06/10/21 08:00 Pulse 82 06/10/21 08:00 Resp 22 H 06/10/21 08:00 BP 140/91 H 06/10/21 08:00 Pulse Ox 92 L 06/10/21 08:00 Weight - Most Recent: 309 lb 9.6 oz I&O - Last 24 hours: Intake & Output 06/09/21 06/10/21 06/10/21 22:59 06:59 14:59 Intake Total 1700 1000 Output Total 1100 800 Balance 600 200 Lab Results - Last 24 hrs: Laboratory Results - last 24 hr 06/10/21 06/10/21 Range/Units 06:00 06:00 WBC 5.24 (4.0-11.0) K/uL RBC 3.89 L (4.50-5.90) M/uL Hgb 13.8 (13.0-17.0) g/dL Hct 39.2 (38.0-50.0) % MCV 100.8 H (80.0-98.0) fL MCH 35.5 H (27.0-32.0) pg MCHC 35.2 (31.0-37.0) g/dL RDW Std Deviation 50.8 (28.0-62.0) fl RDW Coeff of Sid 14 (11.0-15.0) % Plt Count 143 L (150-400) K/uL MPV 10.10 (7.40-12.00) fL Neut % (Auto) 57.6 (48.0-80.0) % Lymph % (Auto) 26.9 (16.0-40.0) % [place] % (Auto) 8.2 (0.0-15.0) % Eos % (Auto) 6.7 (0.0-7.0) % Baso % (Auto) 0.6 (0.0-1.5) % Neut # (Auto) 3.0 (1.4-5.7) K/uL Lymph # (Auto) 1.4 (0.6-2.4) K/uL [place] # (Auto) 0.4 (0.0-0.8) K/uL Eos # (Auto) 0.4 (0.0-0.7) K/uL Baso # (Auto) 0.0 (0.0-0.1) K/uL Nucleated RBC % 0.0 /100WBC Nucleated RBCs # 0 K/uL Sodium 139 (136-148) mmol/L Potassium 4.4 (3.5-5.1) mmol/L Chloride 102 (98-107) mmol/L Carbon Dioxide 30.1 (21.0-32.0) mmol/L BUN 10 (7.0-18.0) mg/dL Creatinine 1.4 H (0.8-1.3) mg/dL Est Cr Clr Drug Dosing 80.83 mL/min Estimated GFR (MDRD) 57.7 ml/min Glucose 120 H (74-106) mg/dL Calcium 8.8 (8.5-10.1) mg/dL Med Orders - Current: Current Medications Acetaminophen (Acetaminophen 325 Mg Tab) 325 mg PO Q6H PRN PRN Reason: Pain Gabapentin (Gabapentin 300 Mg Cap) 300 mg PO BID PRN PRN Reason: back pain Last Admin: 06/09/21 12:15 Dose: 300 mg Documented by: Ondansetron HCl (Ondansetron 4 Mg/2 Ml Sdv) 4 mg IVPUSH Q4H PRN PRN Reason: Vomiting Pantoprazole Sodium (Pantoprazole 40 Mg Tab.Cr) 40 mg PO DAILY ROBI Last Admin: 06/10/21 09:40 Dose: 40 mg Documented by: Discontinued Medications Gadobenate Dimeglumine (Gadobenate Dimeglumine 529 Mg/Ml 20 Ml Sdv) 20 ml IVPUSH ONETIME STA Stop: 06/09/21 07:38 Last Admin: 06/09/21 07:37 Dose: 20 ml Documented by: Sodium Chloride (Normal Saline) 1,000 mls @ 999 mls/hr IV STAT ONE Stop: 06/08/21 20:57 Last Admin: 06/08/21 20:04 Dose: 999 mls/hr Documented by: Iopamidol (Iopamidol 755 Mg/Ml 500 Ml Multipack Bottle) 100 ml IVPUSH ONETIME STA Stop: 06/08/21 19:17 Last Admin: 06/08/21 19:17 Dose: 100 ml Documented by: Lorazepam (Lorazepam 2 Mg/Ml Sdv) 1 mg IVPUSH ONETIME ONE Stop: 06/08/21 21:34 Last Admin: 06/08/21 21:43 Dose: 1 mg Documented by: Meclizine HCl (Meclizine 25 Mg Tab) 25 mg PO ONETIME ONE Stop: 06/08/21 19:58 Last Admin: 06/08/21 20:04 Dose: 25 mg Documented by: Ondansetron HCl (Ondansetron 4 Mg/2 Ml Sdv) 4 mg IVPUSH ONETIME ONE Stop: 06/08/21 19:58 Last Admin: 06/08/21 20:04 Dose: 4 mg Documented by: Tetracaine HCl (Tetracaine Hcl/Pf 0.5% 4 Ml Bottle) 2 ml EYEBOTH ASDIRECTED ONE Stop: 06/08/21 17:25 Last Admin: 06/08/21 18:05 Dose: 2 ml Documented by: - Exam General: Reports: Alert, Oriented, Cooperative HEENT: Reports: Pupils Equal, Pupils Reactive, EOMI, Mucous Membr. Moist/[place] Neck: Denies: Lymphadenopathy Lungs: Reports: Clear to Auscultation, Normal Respiratory Effort Cardiovascular: Reports: Regular Rate, Regular Rhythm GI/Abdominal Exam: Normal Bowel Sounds, Soft, Non-Tender Neurological: Reports: Normal Gait, Normal Speech, Sensation Intact
[2021-06-10 13:10] VITALS: BP 140/79; PULSE 88
== END 2021-06-10 15:45 | disposition home or self-care (01) ==
LOC: MW.ED 16:46 → MW.MS 21:38
PROVIDERS: ADMIT Internal Medicine; ATTEND Internal Medicine
DX: R42 Dizziness and giddiness (principal); H54.62 Unqualified visual loss, left eye, normal vision right eye; G43.909 Migraine, unspecified, not intractable, without status migrainosus; F17.210 Nicotine dependence, cigarettes, uncomplicated; G56.00 Carpal tunnel syndrome, unspecified upper limb; M54.9 Dorsalgia, unspecified; Z20.822 Contact with and (suspected) exposure to COVID-19
CPT/HCPCS: 36415; 70450; 70496; 70498; 70544; 70547; 70553; 80048; 80053; 80307; 84443; 84484; 85025; 87635; 93005; 96374; 96375; 99285; A9270; A9577; G0378; J2060; J2405; J7030; Q9967; U0002

== ENCOUNTER 2021-07-28 10:25 | Emergency (ER) | payer MEDICAID ==
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
[2021-07-28] MEDS ORDERED: Cyclobenzaprine 5 MG Tab PO STA (11:41)
[2021-07-28] MEDS ORDERED: Ketorolac 10 MG Tab PO STA (11:44)
[2021-07-28] MEDS ORDERED: Ketorolac 30 MG/ML SDV IM ONE ×2 (11:51→12:17)
[2021-07-28] MEDS ORDERED: Cyclobenzaprine 10 MG Tab PO ONE (12:18)
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
[2021-07-28 13:11] VITALS: BP 140/68; PULSE 77
== END 2021-07-28 13:12 | disposition home or self-care (01) ==
LOC: MW.ED 10:25
DX: S29.012A Strain of muscle and tendon of back wall of thorax, initial encounter (principal); Z72.0 Tobacco use
CPT/HCPCS: 71046; 72070; 81003; 96372; 99283; A9270; J1885

== ENCOUNTER 2022-08-01 15:04 | Emergency (ER) | payer MEDICAID ==
[2022-08-01] MEDS ORDERED: Sodium Chloride 0.9% 2.5 ML Syringe FLUSH PRN (15:54)
[2022-08-01] MEDS ORDERED: Sodium Chloride 0.9% 1,000 ML IV ONE (15:54)
[2022-08-01] MEDS ORDERED: Ketorolac 30 MG/ML SDV IVPUSH ONE (15:54)
[2022-08-01] MEDS ORDERED: Sodium Chloride 0.9% 10 ML Syringe FLUSH PRN (15:54)
[2022-08-01] MEDS ORDERED: Ondansetron 4 MG/2 ML SDV IVPUSH ONE (15:54)
[2022-08-01 16:38] LABS: CORONAVIRUS COVID-19 NAA NEGATIVE (NEGATIVE); INFLUENZA A NAA POSITIVE (NEGATIVE); INFLUENZA B NAA NEGATIVE (NEGATIVE); RESPIRATORY SYNCYTIAL VIR NAA NEGATIVE (NEGATIVE)
[2022-08-01 16:42] LABS: CARBON DIOXIDE,CO2 27.5 mmol/L (21.0-32.0); POTASSIUM,K 4.4 mmol/L (3.5-5.1)
[2022-08-01 17:32] VITALS: BP 128/68; PULSE 92
== END 2022-08-01 17:31 | disposition home or self-care (01) ==
LOC: MW.ED 15:04
DX: J10.1 Influenza due to other identified influenza virus with other respiratory manifestations (principal); Z20.822 Contact with and (suspected) exposure to COVID-19
CPT/HCPCS: 0241U; 36415; 71045; 80053; 83735; 85025; 96361; 96374; 96375; 99284; J1885; J2405; J3490; J7030

== ENCOUNTER 2022-09-27 18:06 | Emergency (ER) | payer MEDICAID ==
[2022-09-27 18:17] VITALS: BP 131/82; PULSE 99
== END 2022-09-27 18:32 | disposition home or self-care (01) ==
LOC: MW.ED 18:06
DX: K03.81 Cracked tooth (principal)
CPT/HCPCS: 99282

== ENCOUNTER 2024-04-13 18:36 | Emergency (ER) | payer MEDICAID ==
[2024-04-13 18:51] VITALS: BP 152/72; PULSE 120
== END 2024-04-13 19:35 | disposition home or self-care (01) ==
LOC: MW.ED 18:36
DX: S93.601A Unspecified sprain of right foot, initial encounter (principal); Z79.899 Other long term (current) drug therapy; Z75.8 Other problems related to medical facilities and other health care; X50.9XXA Other and unspecified overexertion or strenuous movements or postures, initial encounter
CPT/HCPCS: 73610-26-RT; 73610-RT; 73620-26-RT; 73620-RT; 99283

== ENCOUNTER 2024-05-13 21:36 | Emergency (ER) | payer MEDICAID ==
[2024-05-13 22:15] VITALS: BP 116/61; PULSE 116
[2024-05-13] MEDS: Amoxicillin/Clavulanate K 875-125 MG Tab PO ONE (22:35)
== END 2024-05-13 22:36 | disposition home or self-care (01) ==
LOC: MW.ED 21:36
DX: K02.9 Dental caries, unspecified (principal); K21.9 Gastro-esophageal reflux disease without esophagitis; Z79.899 Other long term (current) drug therapy; Z75.8 Other problems related to medical facilities and other health care
CPT/HCPCS: 99282; A9270

== ENCOUNTER 2024-12-12 18:08 | Emergency (ER) | payer MEDICAID ==
[2024-12-12 18:37] VITALS: BP 133/84; PULSE 106
== END 2024-12-12 20:49 | disposition home or self-care (01) ==
LOC: MW.ED 18:08
DX: K04.7 Periapical abscess without sinus (principal); K02.9 Dental caries, unspecified; F17.200 Nicotine dependence, unspecified, uncomplicated; Z79.899 Other long term (current) drug therapy; Z75.3 Unavailability and inaccessibility of health-care facilities
CPT/HCPCS: 99282; 99283

== ENCOUNTER 2024-12-22 20:36 | Emergency (ER) | payer MEDICAID ==
[2024-12-22 20:45] VITALS: BP 121/80; PULSE 86
== END 2024-12-22 21:08 | disposition home or self-care (01) ==
LOC: MW.ED 20:36
DX: R59.0 Localized enlarged lymph nodes (principal); Z75.3 Unavailability and inaccessibility of health-care facilities; K21.9 Gastro-esophageal reflux disease without esophagitis; Z79.899 Other long term (current) drug therapy; F17.200 Nicotine dependence, unspecified, uncomplicated
CPT/HCPCS: 99283; J1100

== ENCOUNTER 2025-01-15 17:29 | Emergency (ER) | payer MEDICAID ==
[2025-01-15 17:48] VITALS: PULSE 98
[2025-01-15] MEDS: Albuterol/Ipratropium 3.0-0.5 MG/3 ML Neb Soln NEB ONE (18:09)
[2025-01-15 18:39] VITALS: BP 145/74
== END 2025-01-15 18:55 | disposition home or self-care (01) ==
LOC: MW.ED 17:29
DX: J06.9 Acute upper respiratory infection, unspecified (principal); Z75.3 Unavailability and inaccessibility of health-care facilities; Z79.899 Other long term (current) drug therapy
CPT/HCPCS: 71046; 87426; 99284; J7620; 99283; A9270-GY

== ENCOUNTER 2025-02-24 12:33 | Emergency (ER) | payer MEDICAID ==
[2025-02-24] MEDS: Ketorolac 30 MG/ML SDV IVPUSH ONE (14:30)
[2025-02-24 14:31] LABS: BASOPHILS ABSOLUTE AUTO 0.07 K/uL (0.00-0.20); BASOPHILS PERCENT AUTO 0.8 % (0.0-1.0); EOSINOPHILS ABSOLUTE AUTO 0.27 K/uL (0.00-0.45); EOSINOPHILS PERCENT AUTO 3.0 % (0.0-6.0); IMMATURE GRAN ABSOLUTE AUTO 0.07 K/uL (0.00-0.05); IMMATURE GRAN PERCENT AUTO 0.8 % (0.0-0.4); LYMPHOCYTES ABSOLUTE AUTO 1.89 K/uL (1.00-4.80); LYMPHOCYTES PERCENT AUTO 21.1 % (24.0-44.0); MEAN PLATELET VOLUME 9.7 fL (9.4-12.4); MONOCYTES ABSOLUTE AUTO 0.57 K/uL (0.00-0.80); MONOCYTES PERCENT AUTO 6.4 % (0.0-8.0); NEUTROPHILS ABSOLUTE AUTO 6.09 K/uL (1.80-7.70); NEUTROPHILS PERCENT AUTO 67.9 % (41.0-71.0); NRBC ABSOLUTE 0.00 K/uL (0.00-0.02); NRBC PERCENT 0.0 /100WBC (0.0-0.2); PLATELET COUNT,PLT 166 K/uL (150-400); RED BLOOD CELL COUNT 3.06 M/uL (4.52-5.90); WHITE BLOOD CELL COUNT,WBC 8.96 K/uL (3.9-11.3)
[2025-02-24 14:54] LABS: A/G RATIO 1.2 (0.9-1.6); ALANINE AMINOTRANSFERASE,ALT 91.0 IU/L (14-63); ASPARTATE AMNIOTRANSFERASE,AST 86.0 IU/L (15-37); BILIRUBIN TOTAL 2.0 mg/dL (0.2-1.0); BLOOD UREA NITROGEN,BUN 7.0 mg/dL (7.0-18.0); CARBON DIOXIDE,CO2 26.2 mmol/L (21.0-32.0); CHLORIDE,CL 103.0 mmol/L (98-107); CREATININE 1.4 mg/dL (0.8-1.3); EST CRCL DRUG DOSING (CG) 80.06 mL/min; GLUCOSE RANDOM 117.0 mg/dL (74-106); POTASSIUM,K 4.5 mmol/L (3.5-5.1); PROTEIN TOTAL,TP 7.1 g/dL (6.4-8.2); SODIUM,NA 138.0 mmol/L (136-148)
[2025-02-24 15:07] LABS: ESTIMATED GFR 66.0 mL/min (>60)
[2025-02-24 15:24] VITALS: BP 141/69; PULSE 78
== END 2025-02-24 16:05 | disposition home or self-care (01) ==
LOC: MW.ED 12:33
DX: S30.1XXA Contusion of abdominal wall, initial encounter (principal); S93.402A Sprain of unspecified ligament of left ankle, initial encounter; Z79.899 Other long term (current) drug therapy; J45.909 Unspecified asthma, uncomplicated; F17.200 Nicotine dependence, unspecified, uncomplicated; W01.198A Fall on same level from slipping, tripping and stumbling with subsequent striking against other object, initial encounter
CPT/HCPCS: 36415; 73610; 73620; 74177; 80053; 85025; 96374; 99284; J1885; J7030

== ENCOUNTER 2025-03-07 14:01 | Emergency (ER) | payer MEDICAID ==
[2025-03-07 15:07] VITALS: BP 153/76; PULSE 97
== END 2025-03-07 15:59 | disposition home or self-care (01) ==
LOC: MW.ED 14:01
DX: M25.572 Pain in left ankle and joints of left foot (principal); Z75.3 Unavailability and inaccessibility of health-care facilities; Z79.899 Other long term (current) drug therapy
CPT/HCPCS: 99283

== ENCOUNTER 2025-04-10 19:28 | Emergency (ER) | payer MEDICAID ==
[2025-04-10 20:14] LABS: APPEARANCE,URINE CLEAR; GLUCOSE,URINE NEGATIVE (NEGATIVE); OCCULT BLOOD,URINE MODERATE (NEGATIVE)
[2025-04-10 20:34] LABS: BASOPHILS ABSOLUTE AUTO 0.09 K/uL (0.00-0.20); BASOPHILS PERCENT AUTO 1.0 % (0.0-1.0); EOSINOPHILS ABSOLUTE AUTO 0.44 K/uL (0.00-0.45); EOSINOPHILS PERCENT AUTO 5.0 % (0.0-6.0); IMMATURE GRAN ABSOLUTE AUTO 0.06 K/uL (0.00-0.05); IMMATURE GRAN PERCENT AUTO 0.7 % (0.0-0.4); LYMPHOCYTES ABSOLUTE AUTO 2.56 K/uL (1.00-4.80); LYMPHOCYTES PERCENT AUTO 28.9 % (24.0-44.0); MEAN PLATELET VOLUME 9.1 fL (9.4-12.4); MONOCYTES ABSOLUTE AUTO 0.53 K/uL (0.00-0.80); MONOCYTES PERCENT AUTO 6.0 % (0.0-8.0); NEUTROPHILS ABSOLUTE AUTO 5.17 K/uL (1.80-7.70); NEUTROPHILS PERCENT AUTO 58.4 % (41.0-71.0); NRBC ABSOLUTE 0.00 K/uL (0.00-0.02); NRBC PERCENT 0.0 /100WBC (0.0-0.2); PLATELET COUNT,PLT 148 K/uL (150-400); RED BLOOD CELL COUNT 3.68 M/uL (4.52-5.90); WHITE BLOOD CELL COUNT,WBC 8.85 K/uL (3.9-11.3)
[2025-04-10 20:37] LABS: EPITHELIAL CELLS,URINE NOT SEEN (NONE-FEW)
[2025-04-10 20:57] LABS: A/G RATIO 1.3 (0.9-1.6); ALANINE AMINOTRANSFERASE,ALT 71.0 IU/L (14-63); ASPARTATE AMNIOTRANSFERASE,AST 56.0 IU/L (15-37); BILIRUBIN TOTAL 1.2 mg/dL (0.2-1.0); BLOOD UREA NITROGEN,BUN 11.0 mg/dL (7.0-18.0); CARBON DIOXIDE,CO2 19.6 mmol/L (21.0-32.0); CHLORIDE,CL 102.0 mmol/L (98-107); CREATININE 1.3 mg/dL (0.8-1.3); EST CRCL DRUG DOSING (CG) 83.74 mL/min; GLUCOSE RANDOM 108.0 mg/dL (74-106); POTASSIUM,K 3.9 mmol/L (3.5-5.1); PROTEIN TOTAL,TP 7.3 g/dL (6.4-8.2); SODIUM,NA 138.0 mmol/L (136-148)
[2025-04-10 20:58] LABS: ESTIMATED GFR 72.0 mL/min (>60)
[2025-04-10 22:07] VITALS: BP 116/69; PULSE 102
== END 2025-04-10 22:06 | disposition home or self-care (01) ==
LOC: MW.ED 19:28
DX: N20.0 Calculus of kidney (principal); J45.909 Unspecified asthma, uncomplicated; Z79.899 Other long term (current) drug therapy; Z75.3 Unavailability and inaccessibility of health-care facilities
CPT/HCPCS: 36415; 74176; 80053; 81001; 85025; 99284; A9270; 99283

== ENCOUNTER 2025-04-18 23:13 | Emergency (ER) | payer MEDICAID ==
[2025-04-19 04:11] VITALS: BP 131/71; PULSE 96
== END 2025-04-19 04:10 | disposition home or self-care (01) ==
LOC: MW.ED 23:13
DX: S86.912A Strain of unspecified muscle(s) and tendon(s) at lower leg level, left leg, initial encounter (principal); J45.909 Unspecified asthma, uncomplicated; Z79.899 Other long term (current) drug therapy; W18.40XA Slipping, tripping and stumbling without falling, unspecified, initial encounter
CPT/HCPCS: 73562-26-LT; 73562-LT; 99283